=== PATIENT | female | born 1970 | race Caucasian/White ===

== ENCOUNTER → 2016-07-02 | Outpatient (CLI) | payer OTHER ==
--- NOTE | 2016-07-02 13:43 | Diagnostic Imaging Report ---
US Pelvis w/Transvag TECHNIQUE: Transabdominal and transvaginal grayscale, color Doppler and pulse duplex imaging of the pelvis was performed. INDICATION: Prior outside ultrasound. FINDINGS: Status post partial hysterectomy and left oophorectomy. At the level of the cervix, there are multiple simple nabothian gland cysts present. The largest measures 1.3 x 1.5 x 1.2 cm. No left adnexal mass or fluid collection. The right ovary measures 2.4 x 2.8 x 2.3 cm. Although suboptimally imaged, there appears to be a 2.4 x 2.4 x 2.3 cm cyst within the right ovary. Blood flow is present in the right ovary on spectral duplex imaging. IMPRESSION: 1. Status post partial hysterectomy. There are multiple adjacent simple nabothian gland cysts within the residual cervix. 2. Status post left oophorectomy. No suspicious left adnexal mass. 3. Probable right ovarian cyst measuring up to 2.4 cm. Dictated by: Dictated on workstation # [id number]
== END ==
LOC: RAD 09:22
PROVIDERS: ATTEND Obstetrics & Gynecology
DX: R19.07 Generalized intra-abdominal and pelvic swelling, mass and lump (principal); Z90.711 Acquired absence of uterus with remaining cervical stump; Z90.721 Acquired absence of ovaries, unilateral
CPT/HCPCS: 76830; 76856